=== PATIENT | male | born 1980 | race Caucasian/White ===

== ENCOUNTER 2021-03-15 19:34 | Emergency (ER) | payer BC | END 2021-03-15 19:50 | disposition left against medical advice (07) | LOC: JD.ED 19:34 | DX: Z53.21 Procedure and treatment not carried out due to patient leaving prior to being seen by health care provider (principal) ==

== ENCOUNTER 2021-03-17 06:22 | Emergency (ER) | payer BC ==
[2021-03-17] MEDS ORDERED: Sodium Chloride 0.9% 10 ML Syringe FLUSH PRN (06:56)
[2021-03-17] MEDS ORDERED: Dexamethasone 4 MG/ML SDV IVPUSH ONE (06:58)
[2021-03-17] MEDS ORDERED: Albuterol/Ipratropium 3.0-0.5 MG/3 ML Neb Soln NEB ONE (06:58)
--- NOTE | 2021-03-17 07:49 | CR ---
Chest: Portable view of the chest was obtained. Comparison: Prior chest x-ray of 11/19/15. Diffuse increased density is seen throughout both sides of the chest which is an interval change from prior exam. Heart size and mediastinum are within normal limits. No discrete osseous abnormality is appreciated. Impression: 1. Diffuse increased density throughout both sides of the chest. Findings most likely represent prominent COVID pneumonia. Please correlate. Diagnostic code #3
--- NOTE | 2021-03-17 08:58 | EDM.PDOC ---
ED HPI GENERAL MEDICAL PROBLEM - General Chief Complaint: Respiratory Problem Stated Complaint: CONGESTION SOB Time Seen by Provider: 03/17/21 06:50 Source of Information: Reports: Patient History Limitations: Reports: No Limitations - History of Present Illness INITIAL COMMENTS - FREE TEXT/NARRATIVE: The patient presents with possible COVID 19. The patient says he started having symptoms about 13 days ago. He had fever, chills, congestion, cough, shortness of breath. He also had nausea and vomiting. His and daughter both tested positive but he did not get checked. He was here a couple days ago but felt better and left before being seen. He presents now because he is more short of breath and he has generalized weakness. He has a cough. He does not have feve r, nausea or vomiting anymore. He has no chest pain or abdominal pain. When the patient came back his oxygen saturations were 74%. After resting a short while they came up to 86%. He is on 2L by nasal cannula and his oxygen saturations were 97%. He has no medical problems such as heart disease, HTN, diabetes, hypercholesterolemia, asthma or COPD. He does not smoke. Onset: Gradual Duration: Day(s): (13) Improves with: Reports: None Worsens with: Reports: None Associated Symptoms: Reports: Cough, Shortness of Breath - Related Data Allergies Allergy/AdvReac Type Severity Reaction Status Date / Time No Known Allergies Allergy Verified 03/17/21 06:35 Home Meds: Home Meds Codeine/Promethazine [Phenergan with Codeine] 5 - 10 ml PO Q6HR PRN #300 ml 03/17/21 [Rx] dexAMETHasone [Dexamethasone] 6 mg PO Q6H #12 tab 03/17/21 [Rx] Past Medical History - Past Health History Medical/Surgical History: Denies Medical/Surgical History Social & Family History - Tobacco Use Tobacco Use Status *Q: Current Every Day Tobacco User Years of Tobacco use: 20 Packs/Tins Daily: 1 - Recreational Drug Use Recreational Drug Use: No ED ROS GENERAL - Review of Systems Review Of Systems: See Below Constitutional: Reports: Malaise, Weakness, Fatigue. Denies: Fever, Chills HEENT: Reports: No Symptoms Respiratory: Reports: Shortness of Breath, Cough Cardiovascular: Reports: No Symptoms Endocrine: Reports: No Symptoms GI/Abdominal: Reports: No Symptoms : Reports: No Symptoms Musculoskeletal: Reports: No Symptoms ED EXAM, GENERAL - Physical Exam Exam: See Below Exam Limited By: No Limitations General Appearance: Alert, No Apparent Distress Ears: Normal External Exam Nose: Normal Inspection Head: Atraumatic, Normocephalic Neck: Normal Inspection Respiratory/Chest: No Respiratory Distress, Decreased Breath Sounds, Rhonchi Cardiovascular: Regular Rate, Rhythm, No Edema, No Murmur GI/Abdominal: Soft, Non-Tender, No Organomegaly, No Mass Back Exam: Normal Inspection Extremities: Normal Inspection Neurological: Alert, Oriented, No Motor/Sensory Deficits #1 Interpretation EKG Date: 03/17/21 Time: 07:40 Rhythm: NSR Rate (Beats/Min): 96 [place]: Normal P-Wave: Present QRS: Normal ST-T: Other (Flipped T waves in the inferior leads) QT: Normal Course - Vital Signs Last Recorded V/S: Last Vital Signs Temp 97.1 F 03/17/21 06:39 Pulse 104 H 03/17/21 06:39 Resp 17 03/17/21 06:39 BP 145/98 H 03/17/21 06:39 Pulse Ox 90 L 03/17/21 07:30 - Orders/Labs/Meds Orders: Active Orders 24 hr Category Date Time Status Cardiac Monitoring [RC] . DIRECTED Care 03/17/21 06:56 Active Oxygen Therapy [RC] PRN Care 03/17/21 06:56 Active Peripheral IV Care [RC] . DIRECTED Care 03/17/21 06:57 Active RT Aerosol Therapy [RC] ASDIRECTED Care 03/17/21 06:58 Active RT Post Treatment Assessment [RC] Click to Edit Care 03/17/21 10:16 Active RT Pre-Treatment Assessment [RC] Click to Edit Care 03/17/21 10:16 Active Sodium Chloride 0.9% [Saline Flush] Med 03/17/21 06:56 Active 10 ml FLUSH ASDIRECTED PRN Peripheral IV Insertion Adult [OM.PC] Stat Oth 03/17/21 06:56 Ordered Medication Orders Sodium Chloride (Sodium Chloride 0.9% 10 Ml Syringe) 10 ml FLUSH ASDIRECTED PRN PRN Reason: Keep Vein Open Last Admin: 03/17/21 07:35 Dose: 10 ml Documented by: ELIOT Labs: Laboratory Tests 03/17/21 03/17/21 03/17/21 Range/Units 07:30 07:30 07:30 WBC 5.72 (4.23-9.07) K/mm3 RBC 4.56 L (4.63-6.08) M/mm3 Hgb 14.7 (13.7-17.5) gm/dl Hct 43.4 (40.1-51.0) % MCV 95.2 H (79.0-92.2) fl MCH 32.2 (25.7-32.2) pg MCHC 33.9 (32.2-35.5) g/dl RDW Std Deviation 44.7 H (35.1-43.9) fL Plt Count 262 (163-337) K/mm3 MPV 9.3 L (9.4-12.3) fl Neut % (Auto) 72.2 H (34.0-67.9) % Lymph % (Auto) 17.1 L (21.8-53.1) % [place] % (Auto) 9.3 (5.3-12.2) % Eos % (Auto) 0.5 L (0.8-7.0) Baso % (Auto) 0.2 (0.1-1.2) % Neut # (Auto) 4.13 (1.78-5.38) K/mm3 Lymph # (Auto) 0.98 L (1.32-3.57) K/mm3 [place] # (Auto) 0.53 (0.30-0.82) K/mm3 Eos # (Auto) 0.03 L (0.04-0.54) K/mm3 Baso # (Auto) 0.01 (0.01-0.08) K/mm3 PT 10.2 (9.7-12.0) SECONDS INR < 0.93 APTT 25.7 (21.7-31.4) SECONDS D-Dimer, Quantitative 0.74 H (0.19-0.50) mg/L Sodium 140 (136-145) mEq/L Potassium 3.3 L (3.5-5.1) mEq/L Chloride 103 (98-107) mEq/L Carbon Dioxide 28 (21-32) mEq/L Anion Gap 12.3 (5-15) BUN 10 (7-18) mg/dL Creatinine 0.9 (0.7-1.3) mg/dL Est Cr Clr Drug Dosing 112.65 mL/min Estimated GFR (MDRD) > 60 (>60) mL/min BUN/Creatinine Ratio 11.1 L (14-18) Glucose 89 (70-99) mg/dL Lactic Acid (0.4-2.0) mmol/L Calcium 8.6 (8.5-10.1) mg/dL Total Bilirubin 0.5 (0.2-1.0) mg/dL AST 46 H (15-37) U/L ALT 36 (16-63) U/L Alkaline Phosphatase 71 (46-116) U/L Troponin I < 0.017 (0.00-0.056) ng/mL C-Reactive Protein 20.9 H* (<1.0) mg/dL NT-Pro-B Natriuret Pep (0-125) pg/mL Total Protein 7.0 (6.4-8.2) g/dl Albumin 2.5 L (3.4-5.0) g/dl Globulin 4.5 gm/dL Albumin/Globulin Ratio 0.6 L (1-2) SARS-CoV-2 RNA ([facility]) (NEGATIVE) 03/17/21 03/17/21 03/17/21 Range/Units 07:30 07:30 07:30 WBC (4.23-9.07) K/mm3 RBC (4.63-6.08) M/mm3 Hgb (13.7-17.5) gm/dl Hct (40.1-51.0) % MCV (79.0-92.2) fl MCH (25.7-32.2) pg MCHC (32.2-35.5) g/dl RDW Std Deviation (35.1-43.9) fL Plt Count (163-337) K/mm3 MPV (9.4-12.3) fl Neut % (Auto) (34.0-67.9) % Lymph % (Auto) (21.8-53.1) % [place] % (Auto) (5.3-12.2) % Eos % (Auto) (0.8-7.0) Baso % (Auto) (0.1-1.2) % Neut # (Auto) (1.78-5.38) K/mm3 Lymph # (Auto) (1.32-3.57) K/mm3 [place] # (Auto) (0.30-0.82) K/mm3 Eos # (Auto) (0.04-0.54) K/mm3 Baso # (Auto) (0.01-0.08) K/mm3 PT (9.7-12.0) SECONDS INR APTT (21.7-31.4) SECONDS D-Dimer, Quantitative (0.19-0.50) mg/L Sodium (136-145) mEq/L Potassium (3.5-5.1) mEq/L Chloride (98-107) mEq/L Carbon Dioxide (21-32) mEq/L Anion Gap (5-15) BUN (7-18) mg/dL Creatinine (0.7-1.3) mg/dL Est Cr Clr Drug Dosing mL/min Estimated GFR (MDRD) (>60) mL/min BUN/Creatinine Ratio (14-18) Glucose (70-99) mg/dL Lactic Acid 1.0 (0.4-2.0) mmol/L Calcium (8.5-10.1) mg/dL Total Bilirubin (0.2-1.0) mg/dL AST (15-37) U/L ALT (16-63) U/L Alkaline Phosphatase (46-116) U/L Troponin I (0.00-0.056) ng/mL C-Reactive Protein (<1.0) mg/dL NT-Pro-B Natriuret Pep 48 (0-125) pg/mL Total Protein (6.4-8.2) g/dl Albumin (3.4-5.0) g/dl Globulin gm/dL Albumin/Globulin Ratio (1-2) SARS-CoV-2 RNA ([place]) Positive H (NEGATIVE) Meds: Medications Generic Name Dose Route Start Last Admin Trade Name Freq PRN Reason Stop Dose Admin Sodium Chloride 10 ml 03/17/21 06:56 03/17/21 07:35 Sodium Chloride 0.9% 10 Ml Syringe FLUSH 10 ml ASDIRECTED PRN Administration Keep Vein Open Discontinued Medications Generic Name Dose Route Start Last Admin Trade Name Freq PRN Reason Stop Dose Admin Albuterol 0 gm 03/17/21 10:16 Albuterol 6.7 Gm Inhaler INH 03/17/21 10:17 ONETIME ONE Albuterol/Ipratropium 3 ml 03/17/21 06:58 03/17/21 07:36 Albuterol/Ipratropium 3.0-0.5 Mg/3 Ml Neb Soln NEB 03/17/21 06:59 3 ml ONETIME ONE Administration Dexamethasone 4 mg 03/17/21 06:58 03/17/21 07:34 Dexamethasone 4 Mg/Ml Sdv IVPUSH 03/17/21 06:59 4 mg ONETIME ONE Administration - Re-Assessments/Exams Free Text/Narrative Re-Assessment/Exam: 03/17/21 09:03 I ordered oxygen, IV saline lock, duoneb, EKG, CXR and labs. His EKG shows a NSR with no acute changes. His CBC looks good. His K was a little low at 3.3. His AST is elevated at 46. His troponin is negativie. His CRP is elevated at 20.9. He is COVID 19 positive. His CXR shows diffuse increased density throughout both sides of the chest. Findings most likely represent prominent COVID pneumonia. 03/17/21 10:32 The patient is 13 days out from the first symptoms of COVID. He is not a candidate for either regeneron or remdesivir. I will set him up with home oxygen at 3L, dexamethasone, albuterol and phenergan with codeine for the cough. Departure - Departure Time of Disposition: 10:45 Disposition: Home, Self-Care 01 Condition: Good Clinical Impression: COVID-19, Pneumonia due to COVID-19 virus - Discharge Information *PRESCRIPTION DRUG MONITORING PROGRAM REVIEWED*: Not Applicable *COPY OF PRESCRIPTION DRUG MONITORING REPORT IN PATIENT BLAS: Not Applicable Prescriptions: dexAMETHasone [Dexamethasone] 6 mg PO Q6H #12 tab Codeine/Promethazine [Phenergan with Codeine] 5 - 10 ml PO Q6HR PRN #300 ml PRN Reason: Cough Referrals: PCP,None [Primary Care Provider] - Jimmy Lam MD [Physician] - 1 Week Forms: ED Department Discharge Additional Instructions: Drink plenty of fluids. Wear the oxygen 3L by nasal cannula at all times. Take the dexamethasone 1.5 pills orally until gone. Use the inhaler 2 puffs every 6 hours as needed for shortness of breath. Take the phenergan with codeine 5 to 10mls by mouth every 6 hours as needed for cough and congestion. Use the incentive spirometer 10 to 15 breaths every other hour while awake. Try to lay on your stomach as much as you can. That will help oxygenate the most lung tissue. Try to get a pulse oximeter. That will check your oxygen saturation in your blood. Please return if you are consistently below 90%. Return or call if you have any other concerns. Follow up with your provider within a week. If you do not have one, we have a few new doctors at our clinic Dr Lam and Dr Tran. Sepsis Event Note (ED) - Evaluation Sepsis Screening Result: No Definite Risk - Focused Exam Vital Signs: Vital Signs Temp Pulse Resp BP Pulse Ox Pulse Ox 03/17/21 07:30 90 L 03/17/21 06:39 97.1 F 104 H 17 145/98 H 84 L - My Orders Last 24 Hours: My Active Orders 03/17/21 06:56 Cardiac Monitoring [RC] . DIRECTED Oxygen Therapy [RC] PRN Sodium Chloride 0.9% [Saline Flush] 10 ml FLUSH ASDIRECTED PRN Peripheral IV Insertion Adult [OM.PC] Stat 03/17/21 06:57 Peripheral IV Care [RC] . DIRECTED 03/17/21 06:58 RT Aerosol Therapy [RC] ASDIRECTED 03/17/21 10:16 RT Post Treatment Assessment [RC] Click to Edit RT Pre-Treatment Assessment [RC] Click to Edit - Assessment/Plan Last 24 Hours: My Active Orders 03/17/21 06:56 Cardiac Monitoring [RC] . DIRECTED Oxygen Therapy [RC] PRN Sodium Chloride 0.9% [Saline Flush] 10 ml FLUSH ASDIRECTED PRN Peripheral IV Insertion Adult [OM.PC] Stat 03/17/21 06:57 Peripheral IV Care [RC] . DIRECTED 03/17/21 06:58 RT Aerosol Therapy [RC] ASDIRECTED 03/17/21 10:16 RT Post Treatment Assessment [RC] Click to Edit RT Pre-Treatment Assessment [RC] Click to Edit
[2021-03-17] MEDS ORDERED: Albuterol 6.7 GM Inhaler INH ONE (10:16)
== END 2021-03-17 11:55 | disposition home or self-care (01) ==
LOC: JD.ED 06:22
DX: U07.1 COVID-19 (principal); J12.82 Pneumonia due to coronavirus disease 2019; Z72.0 Tobacco use
CPT/HCPCS: 36415; 71045; 80053; 83605; 83880; 84484; 85025; 85379; 85610; 85730; 86140; 87635; 93005; 96374; 99285; A9270; J1100; J7620-GY; U0002